=== PATIENT | female | born 1960 | race Caucasian/White ===

== ENCOUNTER 2022-10-08 08:03 | Outpatient (CLI) | payer BC, SELFPAY ==
--- NOTE | 2022-10-08 08:41 | ECG_ITS ---
Measurements Intervals [place] Rate: 62 P: 24 KS: 175 QRS: -17 QRSD: 106 T: 12 QT: 420 QTc: 429 Interpretive Statements SINUS RHYTHM MINIMAL VOLTAGE CRITERIA FOR LVH, CONSIDER NORMAL VARIANT [MEETS CRITERIA IN ONE OF: R(aVL), S(V1), R(V5), R(V5/V6)+S(V1)] NO PREVIOUS ECG AVAILABLE FOR COMPARISON Electronically Signed On 10-08-2022 19:32:08 CDT by Monique Colmenares M.D.
[2022-10-08 09:01] LABS: Hematocrit 39.7 % (37.0-47.0); Hemoglobin 12.6 g/dL (12.0-15.0)
[2022-10-08 09:40] LABS: Carcinoembryonic Antigen 13.1 ng/mL (0.0-3.0)
== END 2022-10-08 08:04 | disposition home or self-care (01) ==
LOC: ANHSURGERY 08:08
PROVIDERS: Anesthesiology; Visit Provider Surgery
DX: C18.0 Malignant neoplasm of cecum (principal); Z01.818 Encounter for other preprocedural examination
CPT/HCPCS: 36415; 82378; 85014; 85018; 86850; 86900; 86901; 93005

== ENCOUNTER 2022-10-14 16:08 | Inpatient (IN) | payer BC, SELFPAY ==
--- NOTE | 2022-10-08 08:03 | PC.NURSE ---
PRE-OP INSTRUCTIONS, PLEASE READ CAREFULLY Report to the Outpatient Waiting Room, entrance under the green pavilion located off [facility], at time _1000_ on date _10/14/22_. Planned Procedure Time: _1200_. PACK A SMALL OVERNIGHT BAG AND LEAVE IN THE CAR Time changes happen often and if your time is changed the preop area will call you the afternoon before. - You and your visitor will be asked to self-screen and do not enter if you have any COVID symptoms. - A mask is optional within the hospital at this time. -VISITING YOURS 8AM-8PM Patients may have clear liquids (water, carbonated beverages, clear teas, apple juice) until 3 hours prior to surgery (0900 AM) with a maximum of 20 ounces. - No food from midnight until time of surgery Take the following medications with a SIP of water the morning of surgery: _NONE_ DO NOT STOP ANY OF YOUR OTHER PRESCRIPTION MEDICATIONS PRIOR TO SURGERY ?EXCEPT THE FOLLOWING Medications to discontinue per ANESTHESIA - _MULTIVITAMIN 3 DAYS PRIOR TO SURGERY, Date to take last dose 10/10/22_ Please no make-up, nail turkmen, hairspray, perfume, deodorant, or body powder the day of surgery. No jewelry (including any body piercings) or valuables the day of surgery, leave them at home. Please take a shower or bath the night before, or the morning of, surgery with an antibacterial soap. Wear comfortable, loose fitting clothing. - Jewelry must be removed prior to entering the operating room. Rings and piercings that are not removed may be cut off. - The hospital will not accept responsibility for valuables. - Please leave all valuables, including medications, at home the day of surgery. Follow any additional instructions given to you from your surgeon. DIET, BOWEL PREP, PRE-OP ANTIBIOTICS, HIBICLENS SHOWER DAY BEFORE AND THE AM OF SURGERY If you or anyone in your household have experienced Covid symptoms in the past week, please notify your surgeon or the nurse liaison at the phone number below for possible testing. Instructions given to _PATIENT & SPOUSE_and asked if any additional questions and then verbalized understanding. Patient advised to call surgeon office or pre surgery nurse liaison [phone] if any additional questions.
[2022-10-08 08:23] VITALS: BP 140/80; PULSE 66; RESP 18; TEMP 37.3; O2SAT 100; BMI 28.6
[2022-10-14] VITALS (13 sets, daily range): BP systolic 99–138; BP diastolic 60–87; PULSE 59–72; RESP 12–21; TEMP 36.3–37.2; O2SAT 92–100
[2022-10-14] MEDS: ACETAMINOPHEN 500 MG TABLET 1000 MG PO ×3 (10:50→23:51)
[2022-10-14] MEDS: KETOROLAC 15 MG/ML VIAL (*BKC) IV PUSH (10:50)
--- NOTE | 2022-10-14 10:51 | P.PNAN_ITS ---
Anes - Initial Pre Proc Eval Procedure: Operation Date: 10/14/22 12:00 Proposed Procedures p Laparoscopic Right Hemicolectomy, Davinci Assisted - Charles Vázquez DO Date/Time: 10/14/22 10:51 Surgeon: Charles Vázquez DO Pre Op Diagnosis: cecal adenocarcinoma Patient Data Age: 62 Gender: F Height: 1.65 m Weight: 77.2 kg Last Vital Signs Temp 36.3 C L 10/14/22 10:09 Pulse 66 10/14/22 10:09 Resp 18 10/14/22 10:09 BP 128/84 10/14/22 10:09 Pulse Ox 100 10/14/22 10:09 O2 Del Method Room Air 10/14/22 10:09 Allergies Allergy/AdvReac Type Severity Reaction Status Date / Time No Known Allergies Allergy Unverified 10/14/22 10:12 Home Medications Medication Instructions Recorded Confirmed Type cholecalciferol (vitamin D3) 25 25 mcg PO DAILY 10/08/22 10/14/22 History mcg (1,000 unit) capsule fexofenadine 180 mg tablet 180 mg PO QAM 10/08/22 10/14/22 History multivitamin 1 tablet PO DAILY 10/08/22 10/14/22 History topiramate 25 mg tablet 25 mg PO HS 10/08/22 10/14/22 History Patient hx anesthesia problems: none Family hx anesthesia problems: none Results Review: All pre-operative results and documents have been reviewed as part of the pre- operative evaluation. [facility] Past Medical History Medical History (Updated 10/14/22 @ 10:52 by Fletcher Sloan DO) Adenocarcinoma of cecum Surgical History Surgical History (Updated 10/14/22 @ 10:52 by Fletcher Sloan DO) History of tubal ligation Family History Family History (Updated 10/03/22 @ 09:37 by Kirstie Good) Unknown Cancer Social History Social History (Updated 10/14/22 @ 10:55 by Fletcher Sloan DO) Smoking status: Never smoker Second hand tobacco smoke exposure: No Alcohol intake: current Drinks per week: 7 Alcohol use details: 1 drink/day Substance use: never Substance use type: does not use Living arrangements: with family Spiritual care concerns: No Anes - Eval Final PreProcedure Day of Procedure 10/14/22 10:51 Patient weight: overweight Heart: regular rate and rhythm Lungs: clear to auscultation Airway: Mallampati scale class II Neurological: alert and oriented Last oral intake: >/= 8 hours ASA classification: III Emergent: no Anesthetic plan: proceed Anesthesia type and monitoring: general ETT and standard monitoring Results Review: All pre-operative results and documents have been reviewed as part of the pre- operative evaluation. Informed Consent: The patient's anesthetic plan and its attendant risks and benefits were discussed with the patient/family/POA. Questions were solicited and answers provided to the satisfaction of the patient/family/POA.
[2022-10-14] MEDS: LACTATED RINGERS 1,000 ML 30 ML IV CONT ×2 (10:53→15:05)
--- NOTE | 2022-10-14 11:19 | WPDHPUPDATE1 ---
History and Physical Update Update Date/Time: 10/14/22 11:19 History and Physical has been reviewed, including an updated exam of the patient. There are NO changes in the patient's condition. Risks, benefits, and alternatives have been discussed and questions answered. Patient agrees to proceed with procedure.
[2022-10-14] MEDS: ceFAZolin 2 GM/D5W 50 ML 2 GM/50 ML BAG IVPB (12:01)
[2022-10-14] MEDS: BUPIVACAINE/EPINEPHRINE 0.25% 10 ML VIAL 30 ML INFILTRATE (12:49)
[2022-10-14] MEDS: INDOCYANINE GREEN 25 MG VIAL WITH DILUENT 3.75 MG IV PUSH (13:21)
--- NOTE | 2022-10-14 15:01 | W.PM.PROC2 ---
Procedure Note - Detailed Date of Procedure 10/14/22 Pre-op Diagnosis cecal adenocarcinoma Post-op Diagnosis Same Procedure Performed Laparoscopic right hemicolectomy with ileocolic anastomosis, da Diego assisted Surgeon Chalres Vázquez, DO Anesthesia General and Local (0.5% bupivacaine with epi) Description of Procedure Procedure as well as risks, benefits, and alternatives were discussed with the patient.? Written consent was obtained and placed in chart prior to procedure.? Patient was brought back to surgical suite.? He was placed supine on operating table.? Time-out was done to confirm patient and procedure.? He was then intubated by the anesthesia department.? His abdomen was prepped and draped in sterile fashion using chlorhexidine prep.? 0.5% bupivacaine with epinephrine was infiltrated locally around each of the incision sites. An 8 mm incision was made in the left upper quadrant and a 5 mm Optiview trocar was advanced through the abdominal layers under direct visualization.? Once inside the abdominal cavity, carbon dioxide insufflation was used to create a pneumoperitoneum.? Camera was inserted in the abdomen was inspected.? The patient was placed in 5 degree Trendelenburg and 10? rotated left an 8 mm incision was made in the suprapubic region in midline and an 8 mm trocar was inserted under direct visualization another 8 mm incision was made in the umbilical region just inferior into the left of the umbilicus and an 8 mm trocar was inserted under direct visualization.? A 12 mm incision was made in the left lateral abdomen and a 12 mm trocar was inserted under direct visualization.? An 8 mm incision was made in the left lower quadrant and an 8 mm assist port was placed under direct visualization.? The 5 mm port was then removed and exchanged for an 8 mm port.? The robotic arms were then brought up to the patient's bedside and secured to the ports.? The camera and instruments were then inserted.? I then moved over to the robotic console and took control of the camera and instruments.? Thorough inspection was made around the abdominal cavity.? The omentum was then reflected cephalad over the transverse colon.? The area near the ileocecal valve was grasped and retracted anterior and laterally to tent up the ileocolic pedicle.? Scissors with electrocautery were then used to perform the medial to lateral dissection.? I entered into the avascular plane just inferior to the ileocolic pedicle and carefully dissected cephalad to identify the duodenum.? Once the duodenum was identified and then continued sweeping the retroperitoneal structures posteriorly and then isolated the ileocolic pedicle.? A high ligation of the ileocolic vessels was then performed using the vessel sealer.? Hemostasis appeared adequate.? The medial to lateral dissection was then continued cephalad towards the hepatic flexure.? I continued this dissection until I created a window in the hepatocolic ligament.? I then took down the hepatic flexure using the vessel sealer and then continued this dissection caudally along the lateral peritoneal reflections of the ascending colon.? The root of the mesentery at the terminal ileum was then also taken down using scissors with electrocautery to allow adequate mobilization of the terminal ileum up to the transverse colon.? I then used the vessel sealer to continue taken down the mesentery of the terminal ileum all the way to the point of transection and then I also took down the mesocolon towards the point of transection for the transverse colon.? The right branch of the middle colic artery was ligated as the mesocolon was taken down using the vessel sealer.? Indocyanine green was then infused to ensure adequate perfusion to the proximal and distal limbs.? I confirmed adequate perfusion at the point of transection and then used a 60 mm blue load stapler to come across the terminal ileum.? I then identified my point for? proximal transverse colon transection and ag
[2022-10-14] MEDS: MEPERIDINE HCL INJ (*CRX) 50 MG/ML AMPUL 25 MG IV PUSH (15:52)
[2022-10-14] MEDS: LACTATED RINGERS 1,000 ML 100 ML IV CONT (16:37)
[2022-10-14] MEDS: ARTIFICIAL TEARS OPHTH SOLN 15 ML BOTTLE 1 DROP LEFT EYE (17:48)
--- NOTE | 2022-10-14 19:19 | ADMGEN ---
This patient, Regina Madrigal, was admitted to Medical Room 257-01. Patient/family oriented to hospital policies and general routines including ID bracelet, bed and alarms, visiting hours, pain management, procedures, bathroom and other care routines, personal items, smoking policy, room service/diet, and visiting hours. Information on how to activate the Rapid Response Team has been discussed. Patient/Family are encouraged to report perceived risks to care and to ask questions if they do not understand what they are told or what they should do.
[2022-10-14] MEDS: ceFAZolin 1 GM/NS 50 ML 1 GM/50 ML BAG IVPB (19:59)
[2022-10-14] MEDS: oxyCODONE HCL (*CRX) 5 MG TAB IR 10 MG PO ×2 (20:00→23:53)
[2022-10-14] MEDS: TOPIRAMATE 25 MG TABLET PO (20:01)
[2022-10-14] MEDS: PROPARACAINE HCL 0.5% 15 ML OPHTH SOLN 1 DROP EACH EYE (21:02)
[2022-10-14] MEDS: DICLOFENAC SODIUM 0.1% OPHTH SOLN 2.5 ML BOTTLE 1 DROP EACH EYE (21:58)
[2022-10-15] VITALS (7 sets, daily range): BP systolic 99–120; BP diastolic 46–70; PULSE 54–63; RESP 17–21; TEMP 36.3–37.2; O2SAT 97–100
[2022-10-15] MEDS: LACTATED RINGERS 1,000 ML 100 ML IV CONT (02:45)
[2022-10-15] MEDS: ceFAZolin 1 GM/NS 50 ML 1 GM/50 ML BAG IVPB (03:55)
[2022-10-15] MEDS: oxyCODONE HCL (*CRX) 5 MG TAB IR 10 MG PO ×4 (04:15→20:45)
[2022-10-15 05:47] LABS: Basophils Absolute Auto 0.1 K/mm3 (0.0-0.1); Basophils Percent Auto 0.4 % (0.2-1.2); Eosinophils Percent Auto 0.2 % (0-4.4); Hematocrit 35.5 % (37.0-47.0); Hemoglobin 11.1 g/dL (12.0-15.0); Immature Granulocyte Absolute 0.04 K/mm3 (0.00-0.031); Immature Granulocyte Percent A 0.3 % (0-0.5); Lymphocytes Absolute Auto 2.36 K/mm3 (0.9-3.2); Lymphocytes Percent Auto 18.7 % (18.3-44.2); Mean Corpuscular HGB Conc 31.3 g/dl (32-36); Mean Corpuscular Hemoglobin 30.9 pg (26-34); Mean Corpuscular Volume 98.9 fl (80-100); Mean Platelet Volume 9.6 fl (7.4-10.4); Monocytes Absolute Auto 0.9 K/mm3 (0.1-0.6); Monocytes Percent Auto 7.5 % (2.6-8.5); Neutrophils Absolute Auto 9.2 K/mm3 (1.3-6.7); Neutrophils Percent Auto 72.9 % (45.5-73.1); Platelet Count Result 311 k/mm3 (150-375); Red Blood Count 3.59 M/mm3 (4.2-5.4); Red Cell Distribution Width 14.2 % (11.5-14.5); White Blood Count 12.6 K/mm3 (4.5-10.0)
[2022-10-15 06:04] LABS: Anion Gap 2 mmol/L (8-16); Blood Urea Nitrogen 7 mg/dL (7-17); Calcium 8.6 mg/dL (8.4-10.2); Carbon Dioxide 26 mmol/L (22-30); Chloride 108 mmol/L (98-107); Estimated CRCL calculation 75 ml/min; Estimated Glomerular Filt Rate > 60; Glucose 94 mg/dL (65-110); Potassium 3.8 mmol/L (3.4-5.0); Sodium 136 mmol/L (137-145)
[2022-10-15] MEDS: ACETAMINOPHEN 500 MG TABLET 1000 MG PO ×4 (06:29→23:50)
[2022-10-15] MEDS: DICLOFENAC SODIUM 0.1% OPHTH SOLN 2.5 ML BOTTLE 1 DROP EACH EYE ×3 (06:30→20:45)
[2022-10-15] MEDS: ENOXAPARIN 40 MG/0.4 ML SYRINGE SUB-Q (08:34)
--- NOTE | 2022-10-15 09:39 | PM.PNGS ---
Progress Note: A&P Assessment and Plan (1) Adenocarcinoma of cecum: Code(s): C18.0 - Malignant neoplasm of cecum Status: Acute Assessment and Plan: Advanced to full liquids today and stop IV fluids Increase activity, encourage IS Final pathology pending Subjective Subjective Date/Time Seen: 10/15/22 09:39 Interval history: Tolerating clear liquids. Pain controlled. No nausea or vomiting. No flatus or BM yet. Exam GI: Inspection: non-distended GI Palp: Yes Soft to palpation and Yes Tenderness to palpation present (GI) (Incisional) Auscultation: normal bowel sounds Objective Data Vital Signs Vital Signs: Vital Signs - 24 hr 10/14/22 10:09 10/14/22 14:59 10/14/22 15:15 Temperature 36.3 C L 36.6 C Pulse Rate 66 59 L 65 Respiratory Rate 18 12 16 Blood Pressure 128/84 113/64 107/72 Pulse Oximetry 100 100 100 Oxygen Delivery Room Air Simple Face Mask Simple Face Mask Oxygen Flow Rate 6 6 10/14/22 15:06 10/14/22 15:30 10/14/22 15:45 Temperature 36.7 C 37.0 C Pulse Rate 60 70 71 Respiratory Rate 13 12 12 Blood Pressure 113/68 99/77 L 127/87 Pulse Oximetry 100 97 97 Oxygen Delivery Simple Face Mask Room Air Room Air Oxygen Flow Rate 6 10/14/22 16:00 10/14/22 16:30 10/14/22 16:53 Temperature 37.2 C 37.0 C 37.0 C Pulse Rate 72 67 61 Respiratory Rate 15 15 15 Blood Pressure 113/60 130/67 128/70 Pulse Oximetry 92 93 97 Oxygen Delivery Room Air Oxygen Flow Rate 10/14/22 17:04 10/14/22 17:15 10/14/22 18:15 Temperature 37.0 C 37.0 C Pulse Rate 61 67 68 Respiratory Rate 15 15 16 Blood Pressure 138/60 119/63 Pulse Oximetry 97 99 100 Oxygen Delivery Room Air Oxygen Flow Rate 10/14/22 21:53 10/15/22 01:53 10/15/22 05:53 Temperature 37.1 C 36.6 C 36.3 C L Pulse Rate 70 62 54 L Respiratory Rate 21 H 20 21 H Blood Pressure 124/67 110/55 L 120/70 Pulse Oximetry 100 99 100 Oxygen Delivery Oxygen Flow Rate Intake/Output Intake/Output: Intake & Output 10/12/22 10/13/22 10/14/22 10/15/22 23:59 23:59 23:59 23:59 Intake Total 1720 1600 Balance 1720 1600 Meds/Results Medications: Active Medications Generic Name Dose Route Start Last Admin Trade Name Freq PRN Reason Stop Dose Admin Acetaminophen 1,000 mg 10/14/22 18:00 10/15/22 06:29 Acetaminophen 500 Mg Tablet PO 1,000 mg Q6HR ERIC Administration Artificial Tears 1 drop 10/14/22 17:00 10/14/22 17:48 Artificial Tears Ophth Soln 15 Ml Bottle LEFT EYE 1 drop QID PRN Administration Dry Eye(s) Artificial Tears 1 drop 10/14/22 20:18 Artificial Tears Ophth Soln 15 Ml Bottle EACH EYE Q2H PRN Dry Eye(s) Diclofenac Sodium 1 drop 10/14/22 22:00 10/15/22 06:30 Diclofenac Sodium 0.1% Ophth Soln 2.5 Ml Bottle EACH EYE 10/18/22 21:59 1 drop Q8HR ERIC Administration Enoxaparin Sodium 40 mg 10/15/22 09:00 10/15/22 08:34 Enoxaparin 40 Mg/0.4 Ml Syringe SUB-Q 40 mg DAILY ERIC Administration Morphine Sulfate 2 mg 10/14/22 16:08 Morphine Sulfate (*Crx) 2 Mg/Ml Inj IV PUSH Q2H PRN Pain Rated 4-6 Morphine Sulfate 4 mg 10/14/22 16:08 Morphine Sulfate (*Crx) 4 Mg/Ml Inj IV PUSH Q2H PRN Pain Rated 7-10 Ondansetron HCl 4 mg 10/14/22 16:08 Ondansetron Inj 4 Mg/2 Ml Vial IV PUSH Q4H PRN Nausea And Vomiting Oxycodone HCl 5 mg 10/14/22 16:08 Oxycodone Hcl (*Crx) 5 Mg Tab Ir PO Q4H PRN Pain Rated 4-6 Oxycodone HCl 10 mg 10/14/22 16:08 10/15/22 08:34 Oxycodone Hcl (*Crx) 5 Mg Tab Ir PO 10 mg Q4H PRN Administration Pain Rated 7-10 Topiramate 25 mg 10/14/22 21:00 10/14/22 20:01 Topiramate 25 Mg Tablet PO 25 mg HS ERIC Administration Labs Labs: Laboratory Results - last 24 hr 10/15/22 05:32 WBC 12.6 H RBC 3.59 L Hgb 11.1 L Hct 35.5 L MCV 98.9 MCH 30.9 MCHC 31.3 L RDW 14.2 Plt Count 311 MPV 9.6 Immature Gran % (Auto) 0.3 N
--- NOTE | 2022-10-15 10:52 | WPDANESPN ---
Anes - Prog Note Post-Op Date/Time: 10/15/22 10:52 Vital Signs: Last Vital Signs Temp 99 F 10/15/22 10:30 Pulse 60 10/15/22 10:30 Resp 20 10/15/22 10:30 BP 112/46 L 10/15/22 10:30 Pulse Ox 98 10/15/22 10:30 O2 Del Method Room Air 10/15/22 08:00 O2 Flow Rate 6 10/14/22 15:15 Pain Score (VAS): 2-3 I/O: Intake & Output 10/14/22 10/15/22 10/15/22 23:59 07:59 15:59 Intake Total 1670 1600 600 Balance 1670 1600 600 Laboratory Tests 10/15/22 05:32 10/15/22 05:32 10/15/22 05:32 WBC 12.6 H RBC 3.59 L Hgb 11.1 L Hct 35.5 L MCV 98.9 MCH 30.9 MCHC 31.3 L RDW 14.2 Plt Count 311 MPV 9.6 Immature Gran % (Auto) 0.3 Neut % (Auto) 72.9 Lymph % (Auto) 18.7 Yancey % (Auto) 7.5 Eos % (Auto) 0.2 Baso % (Auto) 0.4 Lymph # (Auto) 2.36 Yancey # (Auto) 0.9 H Eos # (Auto) 0.0 Baso # (Auto) 0.1 Abs Immat Gran (auto) 0.04 H Absolute Neuts (auto) 9.2 H Absolute Nucleated RBC 0.0 Nucleated RBC % 0.0 Sodium 136 L Potassium 3.8 Chloride 108 H Carbon Dioxide 26 Anion Gap 2 L BUN 7 Creatinine 0.70 Estim Creat Clear Calc 75 Estimated GFR > 60 Glucose 94 Calcium 8.6 Patient Feedback: Patient satisfied with anesthetic care. Other Findings: C/O left eye irritation since surgery. Right eye was slightly irritated but fine now. Left eye improving with gtts. Instructed to have staff reach out to anesthesia if doesn't continue to improve.
[2022-10-15] MEDS: TOPIRAMATE 25 MG TABLET PO (20:44)
[2022-10-16 03:32] VITALS: BP 110/66; PULSE 55; RESP 18; TEMP 36.6; O2SAT 100
[2022-10-16 05:30] LABS: Hematocrit 34.8 % (37.0-47.0); Hemoglobin 10.8 g/dL (12.0-15.0); Mean Corpuscular Hemoglobin 31.1 pg (26-34); Mean Corpuscular Volume 100.3 fl (80-100); Platelet Count Result 302 k/mm3 (150-375); Red Blood Count 3.47 M/mm3 (4.2-5.4); Red Cell Distribution Width 14.4 % (11.5-14.5); White Blood Count 7.1 K/mm3 (4.5-10.0)
[2022-10-16 05:39] LABS: Anion Gap 2 mmol/L (8-16); Blood Urea Nitrogen 8 mg/dL (7-17); Calcium 8.6 mg/dL (8.4-10.2); Carbon Dioxide 29 mmol/L (22-30); Chloride 107 mmol/L (98-107); Estimated CRCL calculation 78 ml/min; Estimated Glomerular Filt Rate > 60; Glucose 84 mg/dL (65-110); Potassium 3.9 mmol/L (3.4-5.0); Sodium 138 mmol/L (137-145)
[2022-10-16] MEDS: ACETAMINOPHEN 500 MG TABLET 1000 MG PO ×2 (06:49→12:42)
[2022-10-16 07:41] VITALS: BP 121/65; PULSE 56; RESP 17; TEMP 36.6; O2SAT 99
[2022-10-16] MEDS: oxyCODONE HCL (*CRX) 5 MG TAB IR 10 MG PO (08:41)
[2022-10-16] MEDS: ENOXAPARIN 40 MG/0.4 ML SYRINGE SUB-Q (08:41)
[2022-10-16 12:23] VITALS: BP 116/64; PULSE 73; RESP 17; TEMP 36.8; O2SAT 100
--- NOTE | 2022-10-16 15:56 | PM.DS ---
DS: Admitting Diagnosis Discharge Date 10/16/2022 Admitting Diagnosis Adenocarcinoma of cecum DS: Discharge Diagnosis Discharge Diagnosis (1) Adenocarcinoma of cecum: Code(s): C18.0 - Malignant neoplasm of cecum Status: Acute (2) Uterine fibroid: Qualifiers: Uterine leiomyoma location: unspecified location Qualified Code(s): D25.9 - Leiomyoma of uterus, unspecified Code(s): D25.9 - Leiomyoma of uterus, unspecified Status: Acute DS: Summary Hospital Course Reason for hospitalization: Adenocarcinoma of cecum Hospital Course: This is a 62-year-old woman who presented with a recent finding of adenocarcinoma the cecum. She had undergone screening colonoscopy and a cecal mass was identified. This was biopsied and confirmed to be adenocarcinoma. Her preoperative CEA level was 13.1. Preoperative CT abdomen and pelvis showed no definite signs of metastases, but she was found to have a mass in the posterior cul-de-sac between the uterus and rectum. She presented on 10/14/2022 for robotic assisted laparoscopic right hemicolectomy. The mass was visualized in the pelvis during laparoscopic procedure and appeared to be a fibroid coming from the uterus. Surgery was uncomplicated and she was admitted to the hospital postoperatively. She was started on clear liquids initially. On postop day 1 she was tolerating the clear liquids and was advanced to a full liquid diet. She was remaining hemodynamically stable. She had a bowel movement on postop day 1 and was then advanced to a low-fiber diet on postop day 2. She was tolerating low-fiber diet and pain was well controlled. She was discharged on postop day 2. Final pathology was pending at the time of discharge. Status at Discharge Functional status at discharge: independent ambulation Overall status at discharge: patient is progressing back to baseline Time Spent with Patient Time attestation: Total time spent providing and/or coordinating discharge services: Time spent: Less than 30 minutes Exam Resp: Effort & Inspection: normal respiratory effort Auscultation: clear to auscultation bilaterally Cardio: Rate: regular rate Rhythm: regular rhythm Heart sounds: S1 normal heart sound present and S2 normal heart sound present GI: Inspection: non-distended and incision (Intact with glue, mild swelling at left upper quadrant extraction site) GI Palp: Yes Soft to palpation, No Tenderness to palpation present (GI) and No Guarding due to palpation present (GI) Auscultation: normal bowel sounds DS: Data Data Completed and Pending Pending studies at discharge: Pending at discharge 10/14/22 14:35 Surgical [PTH] Routine Labs on day of discharge: Labs from last 24 hours 10/16/22 04:52 WBC 7.1 RBC 3.47 L Hgb 10.8 L Hct 34.8 L MCV 100.3 H MCH 31.1 MCHC 31.0 L RDW 14.4 Plt Count 302 MPV 10.0 Sodium 138 Potassium 3.9 Chloride 107 Carbon Dioxide 29 Anion Gap 2 L BUN 8 Creatinine 0.70 Estim Creat Clear Calc 78 Estimated GFR > 60 Glucose 84 Calcium 8.6 Discharge Plan Discharge Attending physician on discharge: Charles Vázquez Discharging Clinician: Charles Vázquez Patient Disposition: Home, Self-Care Activity: may shower Diet: low fiber Wound Care Instructions: other - see discharge instructions Discharge Instructions: Postoperative instructions Okay to shower, no bathing or soaking for the next 2 weeks Walk several times a day, okay to take stairs No lifting greater than 10-15 lb for 6 weeks Continue soft regular diet Call office if experiencing difficulty with bowel movements, bloating, or nausea. Patient Instructions: Antibiotic Form Stand Alone Forms: General Discharge Information Follow-up/Referrals: Charles Vázquez, [Physician] - Keep Reg. Scheduled Appt. Discharge Medications: New hydrocodone-acetaminophen 5-325 mg tablet 1 tablet PO Q4H PRN
[2022-10-16] MEDS: oxyCODONE HCL (*CRX) 5 MG TAB IR PO (16:27)
== END 2022-10-16 16:30 | disposition home or self-care (01) | DRG 331 ==
LOC: ANH2MED 16:15
PROVIDERS: Admitting Provider Surgery; Visit Provider Surgery
PROC: 0DTF4ZZ Resection of Right Large Intestine, Percutaneous Endoscopic Approach (ICD-10-PCS; principal; 2022-10-14 12:00)
DX: C18.0 Malignant neoplasm of cecum (principal); D25.9 Leiomyoma of uterus, unspecified
CPT/HCPCS: 36415; 80048; 85025; 85027; 88309; A9270; J0690; J1100; J1170; J1650; J1885; J2175; J2250; J2405; J2704; J3010; J7030; J7120